=== PATIENT | female | born 1975 | race American Indian/Alaskan Native ===

== ENCOUNTER 2018-12-24 13:43 | Emergency (ER) | payer SELFPAY ==
[2018-12-24 13:50] VITALS: BP 155/91
== END 2018-12-24 13:49 | disposition left against medical advice (07) ==
LOC: ED 13:43
DX: R51 Headache (principal); R42 Dizziness and giddiness; Z53.21 Procedure and treatment not carried out due to patient leaving prior to being seen by health care provider